=== PATIENT | female | born 1930 | race Caucasian/White ===

== ENCOUNTER 2018-01-04 06:34 | Outpatient (CLI) | payer OTHER ==
[~2018-01-04 06:34] MED LIST: CALTRATE 600 W-1 TAB; COMPLEX B-101 TAB.SA; GILTUSS TR TAB1 EACH PO; GLIPIZIDE10 MG; GLUCOTROL10 MG PO; LEVAQUIN500 MG PO; NEURONTIN300 MG; PLAVIX75 MG; SIMVASTATIN10 MG; SYNTHROID50 MCG; TRIGLIDE160 MG; VASOFLEX TABLET1 TAB; ZITHROMAX TRI-500 MG PO; ZYRTEC10 MG PO; Zestril PO
== END 2018-01-04 07:05 | disposition home or self-care (01) ==
LOC: LAB 06:34
DX: E78.2 Mixed hyperlipidemia (principal); I11.9 Hypertensive heart disease without heart failure; E11.42 Type 2 diabetes mellitus with diabetic polyneuropathy

== ENCOUNTER 2018-02-15 06:14 | Outpatient (CLI) | payer OTHER | END 2018-02-15 06:28 | disposition home or self-care (01) | LOC: EDBD 06:14 → LAB 06:14 | DX: E04.0 Nontoxic diffuse goiter (principal); R82.79 Other abnormal findings on microbiological examination of urine; I11.0 Hypertensive heart disease with heart failure; D53.8 Other specified nutritional anemias; N39.0 Urinary tract infection, site not specified; E11.9 Type 2 diabetes mellitus without complications; E78.2 Mixed hyperlipidemia; N36.2 Urethral caruncle ==